=== PATIENT | female | born 1990 | race Caucasian/White ===

== ENCOUNTER 2023-10-21 17:34 | Emergency (ER) | payer BC ==
[2023-10-21] MEDS: Lidocaine/Epineph/Tetracaine 3 ML Syringe TOP ONE (19:14)
== END 2023-10-21 19:16 | disposition home or self-care (01) ==
LOC: JD.ED 17:34
DX: O22.43 Hemorrhoids in pregnancy, third trimester (principal); Z90.49 Acquired absence of other specified parts of digestive tract; Z3A.31 31 weeks gestation of pregnancy
CPT/HCPCS: 99282; A9270; 99283

== ENCOUNTER 2023-12-20 03:42 | Inpatient (IN) | payer BC ==
[~2023-12-20 03:42] MED LIST: Bupivacaine 0.25% 10 ML SDV ONE
[2023-12-20] MEDS ORDERED: Ondansetron 4 MG/2 ML SDV IVPUSH PRN (11:02)
[2023-12-20] MEDS ORDERED: Nalbuphine 10 MG/ML Syringe IVPUSH PRN (11:02)
[2023-12-20] MEDS ORDERED: Sodium Chloride 0.9% 10 ML Syringe FLUSH PRN (11:02)
[2023-12-20] MEDS ORDERED: Lidocaine 1% 50 ML MDV INJECT PRN (11:02)
[2023-12-20] MEDS ORDERED: Oxytocin/Lactated Ringers 30 UNIT/500 ML BAG IV SCH (11:15)
[2023-12-20 11:31] LABS: BASOPHILS ABSOLUTE AUTO 0.1 K/mm3 (0.0-0.2); BASOPHILS PERCENT AUTO 0.4 % (0.0-1.0); EOSINOPHILS ABSOLUTE AUTO 0.1 K/mm3 (0.0-0.4); EOSINOPHILS PERCENT AUTO 0.3 % (0.0-6.0); HEMATOCRIT 36.1 % (37.0-47.0); HEMOGLOBIN 12.1 gm/dl (12.0-16.0); IMMATURE GRAN PERCENT AUTO 0.7 % (0.0-0.4); LYMPHOCYTES ABSOLUTE AUTO 2.2 K/mm3 (1.0-4.8); MEAN CORPUSCULAR HEMOGLOBIN 27.9 pg (28.0-32.0); MEAN CORPUSCULAR HGB CONC 33.5 g/dl (32.0-36.0); MEAN CORPUSCULAR VOLUME 83.2 fl (83.0-99.0); MONOCYTES ABSOLUTE AUTO 0.8 K/mm3 (0.0-0.8); MONOCYTES PERCENT AUTO 5.8 % (0.0-8.0); NEUTROPHILS ABSOLUTE AUTO 11.1 K/mm3 (1.8-7.7); NEUTROPHILS PERCENT AUTO 77.8 % (41.0-71.0); PLATELET COUNT,PLT 267 K/mm3 (150-400); RED BLOOD CELL COUNT 4.34 M/mm3 (4.10-5.30); WHITE BLOOD CELL COUNT,WBC 14.29 K/mm3 (3.9-11.3)
[2023-12-20] MEDS: Lactated Ringers 1,000 ML IV SCH (13:53)
[2023-12-20] MEDS ORDERED: diphenhydrAMINE 50 MG/ML SDV IVPUSH PRN (14:23)
[2023-12-20] MEDS ORDERED: ePHEDrine 50 MG/ML SDV IVPUSH PRN (14:23)
[2023-12-20] MEDS: Bupivacaine/fentaNYL/NS 100 ML Bag EPIDUR PRN (14:33)
[2023-12-20] MEDS: fentaNYL 100 MCG/2 ML SDV EPIDUR PRN (14:34)
[2023-12-20] MEDS ORDERED: Sodium Chloride 0.9% 10 ML Syringe FLUSH SCH (21:00)
[2023-12-20] MEDS: Oxytocin/Lactated Ringers 30 UNIT/500 ML BAG IV SCH (22:31)
[2023-12-21] MEDS: ceFAZolin 2 GM in Sodium Chloride 0.9% 50 ML IV ONE (04:48)
[2023-12-21] MEDS ORDERED: Acetaminophen 325 MG Tab PO PRN (06:12)
[2023-12-21] MEDS: Ibuprofen 600 MG Tab PO SCH (10:25)
[2023-12-21] MEDS: Witch Hazel Medicated Pads 40/Jar TOP PRN (10:26)
[2023-12-21] MEDS: Benzocaine/Menthol 20%-0.5% Spray 78 GM Cannister TOP PRN (10:26)
[2023-12-21] MEDS: Docusate Sodium 100 MG Cap PO PRN (19:32)
[2023-12-22] MEDS: Ibuprofen 600 MG Tab PO SCH (00:20)
== END 2023-12-22 18:47 | disposition home or self-care (01) | DRG 560 ==
LOC: JD.OB 03:42 → OBSVTOIN 12-21 03:42 → JD.OB 12-21 03:43
PROVIDERS: ADMIT Obstetrics & Gynecology; ATTEND Obstetrics & Gynecology
PROC: 10E0XZZ Delivery of Products of Conception, External Approach (ICD-10-PCS; principal; 2023-12-21)
PROC: 0KQM0ZZ Repair Perineum Muscle, Open Approach (ICD-10-PCS; 2023-12-21)
PROC: 3E0R3BZ Introduction of Anesthetic Agent into Spinal Canal, Percutaneous Approach (ICD-10-PCS; 2023-12-21)
PROC: 00HU33Z Insertion of Infusion Device into Spinal Canal, Percutaneous Approach (ICD-10-PCS; 2023-12-21)
PROC: 10D17Z9 Manual Extraction of Products of Conception, Retained, Via Natural or Artificial Opening (ICD-10-PCS; 2023-12-21)
PROC: 3E033VJ Introduction of Other Hormone into Peripheral Vein, Percutaneous Approach (ICD-10-PCS; 2023-12-21)
PROC: 10907ZC Drainage of Amniotic Fluid, Therapeutic from Products of Conception, Via Natural or Artificial Opening (ICD-10-PCS; 2023-12-21)
DX: O67.9 Intrapartum hemorrhage, unspecified (principal); Z37.0 Single live birth; O70.1 Second degree perineal laceration during delivery; O73.0 Retained placenta without hemorrhage; O76 Abnormality in fetal heart rate and rhythm complicating labor and delivery; Z3A.39 39 weeks gestation of pregnancy; Z90.49 Acquired absence of other specified parts of digestive tract
CPT/HCPCS: 01967; 36415; 51701; 59025; 59409; 85025; 86592; 86850; 86900; 86901; A9270-GY; C1758; J0665; J0690; J3010; J3490; J7120; J7999